=== PATIENT | female | born 1985 | race African-American/Black ===

== ENCOUNTER 2017-06-26 15:05 | Emergency (ER) | payer MEDICAID ==
[~2017-06-26] VITALS: Ht 165.1 cm; Wt 63.5 kg
[~2017-06-26 15:05] MED LIST: Docusate Sod/Senna PO; IBUP600 PO; PREN0.01 PO
[2017-06-26] MEDS ORDERED: LACTATED RINGER'S 1000 ML INJ 1,000 ML IV SCH (16:33)
[2017-06-26 17:30] LABS: BLOOD, URINE NEG (NEG); COMMENT (UR) CULT NOT INDICATED; CULTURE IF INDICATED CULT NOT INDICATED; GLUCOSE,URINE NEG (NEG); KETONE, URINE 40 mg/dL (NEG); NITRITE,URINE NEG (NEG); PH, URINE 7.5 (5.0-8.5); SQUAMOUS EPITHELIAL CELL URINE 2 /hpf (0-5); URINE COLOR YELLOW (YELLW/STRAW)
--- NOTE | 2017-06-26 18:41 | PD ---
HPI Chief Complaint contractions Date Seen: Jun 26, 2017 Travel History International Travel<30 Days: No Contact w/Intl Traveler<30Days: No Known Affected Area: No History of Present Illness HPI 31 yo @ 33w6d with BRISEYDA 08-08-2017. care with Dr. Tolbert at [facility]. Reports high risk and is seen weekly. Patient presents with c/o contractions. She describes intermittent cramping. No VB, LOF. +FM. She reports having "low blood sugar". Poor fluid intake today History Obstetric History Obstetric History 2010 , severe pre-eclampsia with oligo @ 31 weeks 2011 ?ectopic 2013 of IUFD @ 32 weeks 2015 of IUFD @ 32 weeks Past Surgical History Narrative Surgical Family History Family History: Negative Social History Alcohol Use: No Tobacco Use: Yes Substance Abuse: No Allergies-Medications (Allergen,Severity, Reaction): Coded Allergies: No Known Allergies (Verified , 06/26/17) Home Meds Active Scripts Ibuprofen (Motrin 600 Mg Tab) 600 Mg Tab, 600 MG PO Q6H Y for CRAMPING, #30 TAB Prov:Ann Montano MD 06/06/14 [Docusate Sod/Senna] 1 TAB TAB No Conflict Check, 2 TAB PO Q12H Y for CONSTIPATION, #30 TAB Prov:Ann Montano MD 06/06/14 Multivit/Min/Fol Ac/Iron/Pren ( Vit ( Plus)) Tab, 1 TAB PO DAILY, #30 TAB 6 Refills Prov:John Mcbride MD 02/18/14 Review of Systems ROS Limitations: Poor Historian General / Constitutional: No: Fever, Chills Eyes: No: Blurred Vision, Visual changes HENT: No: Headaches, Lightheadedness Cardiovascular: No: Chest Pain or Discomfort, Palpitations Respiratory: No: Cough, Short of Breath Gastrointestinal: Abdominal Pain (contractions per), No: Nausea, Vomiting, Diarrhea, Loss of Appetite Genitourinary: No: Urgency, Frequency, Dysuria, Discharge, Vaginal Bleeding Musculoskeletal: No: Limited ROM, Weakness Skin: No Rash, No Itching, No Lesions Neurologic: No: Focal Abnormalities, Coordination Problem Psychiatric: Anxiety Physical Exam Narrative GENERAL: Well-nourished, well-developed patient. NAD SKIN: Warm and dry. HEAD: Normocephalic and atraumatic. EYES: No scleral icterus. No injection or drainage. ENT: No nasal drainage noted. Mucous membranes pink. Airway patent. NECK: trachea midline. No JVD. CARDIOVASCULAR: Regular rate VSS RESPIRATORY: No accessory muscle use. ABDOMEN/GI: Abdomen soft, non-tender, no rebound, no guarding Gravid GENITOURINARY: External Genitalia: intact and normal in appearance BUS glands: [-] SVE: closed/thick/high TOCO: occasional UC with irritability, resolved FHT's: Category: I Baseline: 120 Reactive: +acc to 150 Variability: mod Decels: [-] EXTREMITIES: No cyanosis or edema. BACK: Nontender without obvious deformity. Normal ROM NEUROLOGICAL: Awake and alert. Motor and sensory grossly within normal limits. Normal speech. Data Data Vital Signs Reviewed: Yes Orders Orders Vital Signs (Adult) .ON ADMISSION (06/26/17 16:33) ^ Labor Status (06/26/17 16:33) Urinalysis - C+S If Indicated (06/26/17 16:33) ^ Non Stress Test (06/26/17 16:33) ^ Hydration (06/26/17 16:33) Lactated Ringer's 1000 Ml Inj (Lr 1000 M (06/26/17 16:33) Ob/Psych Drug Screen, Urine (06/26/17 18:13) Labs Bedside Glucose 90 Laboratory Tests Test 06/26/17 17:00 Urine Color YELLOW Urine Turbidity HAZY Urine pH 7.5 Urine Specific [place] 1.010 Urine Protein NEG Urine Glucose (UA) NEG Urine Ketones 40 Urine Occult Blood NEG Urine Nitrite NEG Urine Bilirubin NEG Urine Urobilinogen 2.0 Urine Leukocyte Esterase SMALL Urine RBC LESS THAN 1 Urine WBC 2 Urine Squamous Epithelial Cells 2 Urine Amorphous Sediment RARE Microscopic Urinalysis Comment CULT NOT INDICATED MDM Medical Record Reviewed: Yes Narrative Course / MDM 33w6d Irregular UC resolved Dehydration with Ketones on UA IV hydrated Tolerating regular diet and fluid FHT reassuring No PTL, cervix closed. Normal glucose Plan D/c home F/u for OB visits weekly with NSTs Mariya Cha MD Jun 26, 2017 18:41
[2017-07-01 09:40] LABS: BATH SALTS (MDPV) UR NEG (NEG); ECSTASY (MDMA) UR NEG (NEG); GABAPENTIN UR NEG (NEG); HEROIN (6-ACETYLMORPHINE) UR NEG (NEG); HYDROMORPHONE U NEG (NEG); K2 SPICE UR NEG (NEG); OBMETHADONE UR NEG (NEG); PHENCYCLIDINE URINE NEG (NEG)
== END 2017-06-26 18:56 | disposition home or self-care (01) ==
LOC: HOBED 15:05
DX: O47.03 False labor before 37 completed weeks of gestation, third trimester (principal); E86.0 Dehydration; O99.333 Smoking (tobacco) complicating pregnancy, third trimester; Z3A.33 33 weeks gestation of pregnancy; Z79.899 Other long term (current) drug therapy
CPT/HCPCS: 59025; 80307; 81001; 82948; G0481

== ENCOUNTER 2017-07-25 14:33 | Inpatient (IN) | payer MEDICAID ==
[~2017-07-25] VITALS: Ht 165.1 cm; Wt 64.0 kg
[2017-07-25] VITALS (18 sets, daily range): BP systolic 104–141; BP diastolic 57–124; PULSE 54–114; RESP 16–20; TEMP 97.5–97.7; O2SAT 100
[2017-07-25] MEDS ORDERED: LACTATED RINGER'S 1000 ML INJ 1,000 ML IV ONE (14:51)
--- NOTE | 2017-07-25 15:09 | HHI.PR ---
PORTER HEAD Note Note Patient Name: Uzma Ward Unit Number: [id number] Date of : 1985 Patient Status: Admitted Inpatient Attending Doctor: Kedar Eli MD HPI HPI Chief Complaint ROM Date Seen: Jul 25, 2017 Time Seen: 14:57 Travel History International Travel<30 Days: No Contact w/Intl Traveler<30Days: No Known Affected Area: No History of Present Illness HPI 31y/o @ 38.wks. She has PNC with a [facility] provider. She presented today via EMS for ROM. She reports that it occured at 13:30pm today and ctx started shortly thereafter. She has a poor obstetrical history: 1. STAT c/s at term for preE 2. ectopic, LSC 3. 32wk of IUFD 4. rCS at term 5. current, scheduled for rCS next week Pt states that she has been taking ASA 81mg (still on) and PNVs. She smokes 1/ 2 PPD. Weeks Gestation: 38 Para: 3 : 5 Last Menstrual Period: Jul 25, 2017 History (Limited) History Obstetric History Obstetric History 1. STAT c/s at term for preE 2. ectopic, LSC 3. 32wk of IUFD 4. rCS at term 5. current, scheduled for rCS next week Past Surgical History Narrative Surgical CS x2 LSC ectopic x1 Family History Family History: Social History Alcohol Use: No Tobacco Use: Yes (1/2 PPD) Substance Abuse: No Allergies-Medications Allergies-Medications (Allergen,Severity, Reaction): Coded Allergies: No Known Allergies (Verified , 06/26/17) Home Meds Active Scripts Ibuprofen (Motrin 600 Mg Tab) 600 Mg Tab, 600 MG PO Q6H Y for CRAMPING, #30 TAB Prov:Ann Montano MD 06/06/14 [Docusate Sod/Senna] 1 TAB TAB No Conflict Check, 2 TAB PO Q12H Y for CONSTIPATION, #30 TAB Prov:Ann Montano MD 06/06/14 Multivit/Min/Fol Ac/Iron/Pren ( Vit ( Plus)) Tab, 1 TAB PO DAILY, #30 TAB 6 Refills Prov:John Mcbride MD 02/18/14 ROS Review of Systems Except as stated in HPI: all other systems reviewed are Neg Physical Exam Physical Exam Narrative GENERAL: uncooperative, flailing in bed SKIN: Warm and dry. HEAD: Normocephalic and atraumatic. EYES: No scleral icterus. No injection or drainage. ABDOMEN/GI: Abdomen soft, non-tender, gravid EXTREMITIES: No cyanosis or edema. NEUROLOGICAL: appears chemically impaired CVX: 3/90/-2, grossly ruptured TOCO: no ctx seen on tracing but pt moving and toco irritable FHT's: 130s, +accels, no decels, moderate variability, reactive Data Data Data Vital Signs Reviewed: Yes Orders Orders Ob (2e) Additional Admit Info (07/25/17 14:42) Vital Signs (Adult) .ON ADMISSION (07/25/17 14:51) ^ Labor Status (07/25/17 14:51) ^ Non Stress Test (07/25/17 14:51) Admit To Inpatient (07/25/17 ) Vital Signs (Adult) .ON ADMISSION (07/25/17 14:51) Activity Oob Ad Marilyn (07/25/17 14:51) Heart (07/25/17 14:51) Urinary Catheter Management BRIAN.Q8H (07/25/17 14:51) ^ Preps (07/25/17 14:51) Scd / Epifanio / Foot Pump BRIAN.QSHIFT (07/25/17 14:51) ^ Ultrasound For Locatio (07/25/17 14:51) Diet Npo (07/25/17 Dinner) Lactated Ringer's 1000 Ml Inj (Lr 1000 M (07/25/17 14:51) Lactated Ringer's 1000 Ml Inj (Lr 1000 M (07/25/17 15:21) Citric Acid-Sodium Citrate Liq (Bicitra (07/25/17 16:30) Type And Screen (07/25/17 14:51) Complete Blood Count With Diff (07/25/17 14:51) Urinalysis - C+S If Indicated (07/25/17 14:51) Drug Screen, Random Urine (07/25/17 14:51) Cefazolin Inj (Ancef Inj) (07/25/17 16:00) Inpatient Certification (07/25/17 ) MDM MDM Plan 31y/o @ 38.0wks with 1. PROM -- grossly ruptured on exam 2. h/o CSx2 -- for rCS scheduled next week at [facility] -- unable to communicate NPO time -- preop orders placed 3. h/o preE -- on ASA 81mg this preg, continues currently, will notify ANES -- BPs normal range 4. h/o IUFD at 32wks 5. records -- requested stat from [facility] Diagnosis Diagnosis: Primary Impression: 38 weeks gestation of Additional Impressions: PROM (premature rupture of membranes) History of History of ectopic Kedar Eli MD Jul 25, 2017 14:56 Kedar Eli MD Jul 25, 2017 15:09
--- NOTE | 2017-07-25 15:09 | HHI.PR ---
PRODUCTION DISPATCHER Note Note Patient Name: Uzma Ward Unit Number: [id number] Date of : 1985 Patient Status: Admitted Inpatient Attending Doctor: Kedar Eli MD HPI HPI Chief Complaint ROM Date Seen: Jul 25, 2017 Time Seen: 14:57 Travel History International Travel<30 Days: No Contact w/Intl Traveler<30Days: No Known Affected Area: No History of Present Illness HPI 31y/o @ 38.wks. She has PNC with a [facility] provider. She presented today via EMS for ROM. She reports that it occured at 13:30pm today and ctx started shortly thereafter. She has a poor obstetrical history: 1. STAT c/s at term for preE 2. ectopic, LSC 3. 32wk of IUFD 4. rCS at term 5. current, scheduled for rCS next week Pt states that she has been taking ASA 81mg (still on) and PNVs. She smokes 1/ 2 PPD. Weeks Gestation: 38 Para: 3 : 5 Last Menstrual Period: Jul 25, 2017 History (Limited) History Obstetric History Obstetric History 1. STAT c/s at term for preE 2. ectopic, LSC 3. 32wk of IUFD 4. rCS at term 5. current, scheduled for rCS next week Past Surgical History Narrative Surgical CS x2 LSC ectopic x1 Family History Family History: Social History Alcohol Use: No Tobacco Use: Yes (1/2 PPD) Substance Abuse: No Allergies-Medications Allergies-Medications (Allergen,Severity, Reaction): Coded Allergies: No Known Allergies (Verified , 06/26/17) Home Meds Active Scripts Ibuprofen (Motrin 600 Mg Tab) 600 Mg Tab, 600 MG PO Q6H Y for CRAMPING, #30 TAB Prov:Ann Montano MD 06/06/14 [Docusate Sod/Senna] 1 TAB TAB No Conflict Check, 2 TAB PO Q12H Y for CONSTIPATION, #30 TAB Prov:Ann Montano MD 06/06/14 Multivit/Min/Fol Ac/Iron/Pren ( Vit ( Plus)) Tab, 1 TAB PO DAILY, #30 TAB 6 Refills Prov:John Mcbride MD 02/18/14 ROS Review of Systems Except as stated in HPI: all other systems reviewed are Neg Physical Exam Physical Exam Narrative GENERAL: uncooperative, flailing in bed SKIN: Warm and dry. HEAD: Normocephalic and atraumatic. EYES: No scleral icterus. No injection or drainage. ABDOMEN/GI: Abdomen soft, non-tender, gravid EXTREMITIES: No cyanosis or edema. NEUROLOGICAL: appears chemically impaired CVX: 3/90/-2, grossly ruptured TOCO: no ctx seen on tracing but pt moving and toco irritable FHT's: 130s, +accels, no decels, moderate variability, reactive Data Data Data Vital Signs Reviewed: Yes Orders Orders Ob (2e) Additional Admit Info (07/25/17 14:42) Vital Signs (Adult) .ON ADMISSION (07/25/17 14:51) ^ Labor Status (07/25/17 14:51) ^ Non Stress Test (07/25/17 14:51) Admit To Inpatient (07/25/17 ) Vital Signs (Adult) .ON ADMISSION (07/25/17 14:51) Activity Oob Ad Marilyn (07/25/17 14:51) Heart (07/25/17 14:51) Urinary Catheter Management BRIAN.Q8H (07/25/17 14:51) ^ Preps (07/25/17 14:51) Scd / Epifanio / Foot Pump BRIAN.QSHIFT (07/25/17 14:51) ^ Ultrasound For Locatio (07/25/17 14:51) Diet Npo (07/25/17 Dinner) Lactated Ringer's 1000 Ml Inj (Lr 1000 M (07/25/17 14:51) Lactated Ringer's 1000 Ml Inj (Lr 1000 M (07/25/17 15:21) Citric Acid-Sodium Citrate Liq (Bicitra (07/25/17 16:30) Type And Screen (07/25/17 14:51) Complete Blood Count With Diff (07/25/17 14:51) Urinalysis - C+S If Indicated (07/25/17 14:51) Drug Screen, Random Urine (07/25/17 14:51) Cefazolin Inj (Ancef Inj) (07/25/17 16:00) Inpatient Certification (07/25/17 ) MDM MDM Plan 31y/o @ 38.0wks with 1. PROM -- grossly ruptured on exam 2. h/o CSx2 -- for rCS scheduled next week at [facility] -- unable to communicate NPO time -- preop orders placed 3. h/o preE -- on ASA 81mg this preg, continues currently, will notify ANES -- BPs normal range 4. h/o IUFD at 32wks 5. records -- requested stat from [facility] Diagnosis Diagnosis: Primary Impression: 38 weeks gestation of Additional Impressions: PROM (premature rupture of membranes) History of History of ectopic Kedar Eli MD Jul 25, 2017 14:56 Kedar Eli MD Jul 25, 2017 15:09
--- NOTE | 2017-07-25 15:09 | HHI.PR ---
CYANIDE CASE HARDENER Note Note Patient Name: Uzma Ward Unit Number: [id number] Date of : 1985 Patient Status: Admitted Inpatient Attending Doctor: Kedar Eli MD HPI HPI Chief Complaint ROM Date Seen: Jul 25, 2017 Time Seen: 14:57 Travel History International Travel<30 Days: No Contact w/Intl Traveler<30Days: No Known Affected Area: No History of Present Illness HPI 31y/o @ 38.wks. She has PNC with a [facility] provider. She presented today via EMS for ROM. She reports that it occured at 13:30pm today and ctx started shortly thereafter. She has a poor obstetrical history: 1. STAT c/s at term for preE 2. ectopic, LSC 3. 32wk of IUFD 4. rCS at term 5. current, scheduled for rCS next week Pt states that she has been taking ASA 81mg (still on) and PNVs. She smokes 1/ 2 PPD. Weeks Gestation: 38 Para: 3 : 5 Last Menstrual Period: Jul 25, 2017 History (Limited) History Obstetric History Obstetric History 1. STAT c/s at term for preE 2. ectopic, LSC 3. 32wk of IUFD 4. rCS at term 5. current, scheduled for rCS next week Past Surgical History Narrative Surgical CS x2 LSC ectopic x1 Family History Family History: Social History Alcohol Use: No Tobacco Use: Yes (1/2 PPD) Substance Abuse: No Allergies-Medications Allergies-Medications (Allergen,Severity, Reaction): Coded Allergies: No Known Allergies (Verified , 06/26/17) Home Meds Active Scripts Ibuprofen (Motrin 600 Mg Tab) 600 Mg Tab, 600 MG PO Q6H Y for CRAMPING, #30 TAB Prov:Ann Montano MD 06/06/14 [Docusate Sod/Senna] 1 TAB TAB No Conflict Check, 2 TAB PO Q12H Y for CONSTIPATION, #30 TAB Prov:Ann Montano MD 06/06/14 Multivit/Min/Fol Ac/Iron/Pren ( Vit ( Plus)) Tab, 1 TAB PO DAILY, #30 TAB 6 Refills Prov:John Mcbride MD 02/18/14 ROS Review of Systems Except as stated in HPI: all other systems reviewed are Neg Physical Exam Physical Exam Narrative GENERAL: uncooperative, flailing in bed SKIN: Warm and dry. HEAD: Normocephalic and atraumatic. EYES: No scleral icterus. No injection or drainage. ABDOMEN/GI: Abdomen soft, non-tender, gravid EXTREMITIES: No cyanosis or edema. NEUROLOGICAL: appears chemically impaired CVX: 3/90/-2, grossly ruptured TOCO: no ctx seen on tracing but pt moving and toco irritable FHT's: 130s, +accels, no decels, moderate variability, reactive Data Data Data Vital Signs Reviewed: Yes Orders Orders Ob (2e) Additional Admit Info (07/25/17 14:42) Vital Signs (Adult) .ON ADMISSION (07/25/17 14:51) ^ Labor Status (07/25/17 14:51) ^ Non Stress Test (07/25/17 14:51) Admit To Inpatient (07/25/17 ) Vital Signs (Adult) .ON ADMISSION (07/25/17 14:51) Activity Oob Ad Marilyn (07/25/17 14:51) Heart (07/25/17 14:51) Urinary Catheter Management BRIAN.Q8H (07/25/17 14:51) ^ Preps (07/25/17 14:51) Scd / Epifanio / Foot Pump BRIAN.QSHIFT (07/25/17 14:51) ^ Ultrasound For Locatio (07/25/17 14:51) Diet Npo (07/25/17 Dinner) Lactated Ringer's 1000 Ml Inj (Lr 1000 M (07/25/17 14:51) Lactated Ringer's 1000 Ml Inj (Lr 1000 M (07/25/17 15:21) Citric Acid-Sodium Citrate Liq (Bicitra (07/25/17 16:30) Type And Screen (07/25/17 14:51) Complete Blood Count With Diff (07/25/17 14:51) Urinalysis - C+S If Indicated (07/25/17 14:51) Drug Screen, Random Urine (07/25/17 14:51) Cefazolin Inj (Ancef Inj) (07/25/17 16:00) Inpatient Certification (07/25/17 ) MDM MDM Plan 31y/o @ 38.0wks with 1. PROM -- grossly ruptured on exam 2. h/o CSx2 -- for rCS scheduled next week at [facility] -- unable to communicate NPO time -- preop orders placed 3. h/o preE -- on ASA 81mg this preg, continues currently, will notify ANES -- BPs normal range 4. h/o IUFD at 32wks 5. records -- requested stat from [facility] Diagnosis Diagnosis: Primary Impression: 38 weeks gestation of Additional Impressions: PROM (premature rupture of membranes) History of History of ectopic Kedar Eli MD Jul 25, 2017 14:56 Kedar Eli MD Jul 25, 2017 15:09
[2017-07-25] MEDS ORDERED: LACTATED RINGER'S 1000 ML INJ 1,000 ML IV SCH ×2 (15:21→21:42)
[2017-07-25 15:32] LABS: AUTOMATED NEUTROPHIL # 6.8 TH/MM3 (1.8-7.7); BASOPHIL # 0.1 TH/MM3 (0-0.2); BASOPHIL % 0.5 % (0.0-2.0); EOSINOPHIL # 0.4 TH/MM3 (0-0.4); EOSINOPHIL % 3.2 % (0.0-4.0); HEMATOCRIT 34.9 % (35.0-46.0); HEMOGLOBIN 11.7 GM/DL (11.6-15.3); LYMPH % 27.9 % (9.0-44.0); LYMPHOCYTE # 3.3 TH/MM3 (1.0-4.8); MEAN CELL VOLUME 83.5 FL (80.0-100.0); MEAN CORPUSCULAR HGB CONC 33.5 % (32.0-36.0); MEAN PLATELET VOLUME 8.1 FL (7.0-11.0); MONO % 10.2 % (0.0-8.0); MONOCYTE # 1.2 TH/MM3 (0-0.9); NEUT % 58.2 % (16.0-70.0); PLATELET COUNT 262 TH/MM3 (150-450); RED BLOOD COUNT 4.18 MIL/MM3 (4.00-5.30); RED CELL DISTRIBUTION WIDTH 13.8 % (11.6-17.2); WHITE BLOOD COUNT 11.7 TH/MM3 (4.0-11.0)
[2017-07-25 15:35] LABS: BILIRUBIN, URINE NEG (NEG); BLOOD, URINE NEG (NEG); GLUCOSE,URINE NEG (NEG); KETONE, URINE NEG (NEG); MUCUS URINE FEW /lpf (OCC); NITRITE,URINE NEG (NEG); PH, URINE 7.5 (5.0-8.5); URINE COLOR YELLOW (YELLW/STRAW); URINE LEUKOCYTE ESTERASE NEG (NEG)
[2017-07-25] MEDS ORDERED: ACETAMINOPHEN 1000 MG/100 ML 100 ML IV ONE (15:43)
[2017-07-25] MEDS ORDERED: CITRIC ACID-SODIUM CITRATE LIQ 30 ML UDC PO SCH (16:30)
[2017-07-25] MEDS ORDERED: KETOROLAC TROMETHAMINE 60 MG/2 ML (IM) VIAL IM PRN (16:45)
[2017-07-25] MEDS ORDERED: ZOLPIDEM TARTRATE 5 MG TAB PO PRN (16:45)
[2017-07-25] MEDS ORDERED: OXYTOCIN 30 UNITS-500ML PREMIX 500 ML IV ONE (16:45)
[2017-07-25] MEDS ORDERED: SODIUM CHLORIDE 0.9% FLUSH 10 ML FLUSH IV FLUSH PRN (16:45)
[2017-07-25] MEDS ORDERED: oxyCODONE/ACETAMINOPHEN 5 MG/325 MG TAB PO PRN (16:45)
[2017-07-25] MEDS ORDERED: ACETAMINOPHEN 325 MG TAB PO PRN (16:45)
[2017-07-25] MEDS ORDERED: ONDANSETRON HCL 4 MG/2 ML VIAL IV PUSH PRN (16:45)
--- NOTE | 2017-07-25 17:13 | PD.OB.DELI ---
Procedure Note Section Procedure Pre Op Diagnosis: (1) Request for sterilization (2) 38 weeks gestation of (3) PROM (premature rupture of membranes) (4) Previous section Post Op Diagnosis: (1) 38 weeks gestation of (2) PROM (premature rupture of membranes) (3) Previous section (4) Request for sterilization Performed by Kedar Eli Procedure: Repeat Low Transverse Sec Indication for delivery: Other (PROM, h/o CSx2) Previous condition: None Informed consent obtained: For procedure Confirmed correct: Patient, Procedure, Site, Time-out taken Anesthesia: Spinal Medication prior to procedure: As documented in eMAR Monitoring during procedure: Blood pressure monitoring, Pulse oximetry Urinary catheter: Inserted using sterile technique Sterile preparation: In usual fashion Position: Supine with wedge to left side Operative Features Skin Incision: Pfannenstiel Uterine Incision: Low transverse w/knife / blunt ext Membranes Ruptured: Previously Presentation: Occiput posterior, Face presentation, Vertex Delivery date: Jul 25, 2017 Delivery time: 15:57 Delivery of : Uneventful : Male One Minute : 8 Five Minute : 9 Weight: 2680 Status of : Viable, Cord blood Placenta delivered: Intact Estimated blood loss: 500 Procedure tolerated: Well Maternal Condition: Stable Procedure in detail The pt was taken to the OR where she spinal anesthesia was placed. She was then prepped and draped in the normal sterile fashion. A time out was taken and agreed by all team members. A scalpel was used to excise the prior scar with Bovie assistance. The incision was then carried down to the underlying layer of fascia which was nicked in the midline. The fascia was extended laterally with Newell scissors. Reinaldo clamps were used to elevate the fascia and the underlying rectus muscles were dissected off with blunt and sharp dissection. The same was done to the inferior fascia. The muscles were in the midline and the peritoneum entered bluntly. It was stretched with adequate visualization of the bladder. A bladder blade was placed and a bladder flap created. A low uterine incision was then made with the scalpel and extended bluntly. A hand was placed into the lower uterine segment and the head delivered atraumatically followed by the body. Delayed cord clamping x45sec took place while the baby was suctioned, dried, and stimulated. Cord was double clamped and handed off to awaiting team. Cord blood was collected and sent to the lab. The placenta expelled with fundal massage. The uterus was exteriorized and cleared of all clot and debris. The hysterotomy was closed with 0-vicryl in a running locked fashion. A second layer of 0-monocryl was used to embricate and achieve excellent hemostasis. Attention was then turned to the R fallopian tube. It was grasped with a [place] clamp and using 2 plain gut ties, a modified Hudson was performed and the tubal segment excised and sent to pathology. These steps were repeated on the L fallopian tube. The cul-de-sac was irrigated and the uterus replaced into the abdomen. The gutters were inspected and cleared of all clot and debris. The hysterotomy was hemostatic. All instruments were removed from the abdomen and the peritoneum was closed with 3-0 vicryl. The rectus fascia was inspected and hemostatic. The muscles were reapproximated with a horizontal mattress stitch using 0- vicryl. The fascia was closed with 0-vicryl in a running fashion from L to R. The subcutaneous tissue was irrigated and the Bovie used to achieve excellent hemostasis. The tissue was reapproximated with 3-0 plain gut. The skin was clsoed with 4-0 monocryl in a running subcuticular fashion. The incision was dressed and a closing time out performed. The pt tolerated the procedure well and was taken to the PACU in stable condition. Sponge, laps, instruments, and needle counts were correct x3. Kedar Eli MD Jul 25, 2017 17:13
[2017-07-25] MEDS ORDERED: OXYTOCIN 30 UNITS-500ML PREMIX 500 ML ONE (17:36)
[2017-07-25] MEDS ORDERED: ASPI81CH37 CHEW (17:50)
[2017-07-25] MEDS ORDERED: EPIDURAL-NO SYSTEMIC NARCOTICS PRN (18:15)
[2017-07-25] MEDS ORDERED: EPIDURAL-DIPHENHYDRAMINE HCL 50 MG/ML VIAL IV PUSH PRN (18:15)
[2017-07-25] MEDS ORDERED: EPIDURAL-DO NOT ADMINISTER ANTICOAGULANTS PRN (18:15)
[2017-07-25] MEDS ORDERED: EPIDURAL-NALOXONE HCL 0.4 MG/ML AMP IV PUSH PRN (18:15)
[2017-07-25] MEDS ORDERED: EPIDURAL-DIPHENHYDRAMINE HCL 50 MG CAP PO PRN (18:15)
[2017-07-25] MEDS ORDERED: SODIUM CHLORIDE 0.9% FLUSH 10 ML FLUSH IV FLUSH SCH (21:00)
[2017-07-26] VITALS (7 sets, daily range): BP systolic 88–138; BP diastolic 44–93; PULSE 59–88; RESP 16–18; TEMP 97.9–98.7; O2SAT 100
[2017-07-26] MEDS: ACETAMINOPHEN 1000 MG/100 ML 100 ML IV SCH ×3 (00:09→08:43)
[2017-07-26] MEDS ORDERED: OXYTOCIN 30 UNITS-500ML PREMIX 500 ML IV PRN (02:45)
[2017-07-26 06:03] LABS: AUTOMATED NEUTROPHIL # 13.8 TH/MM3 (1.8-7.7); BASOPHIL # 0.1 TH/MM3 (0-0.2); BASOPHIL % 0.3 % (0.0-2.0); EOSINOPHIL # 0.2 TH/MM3 (0-0.4); EOSINOPHIL % 1.3 % (0.0-4.0); HEMATOCRIT 32.8 % (35.0-46.0); LYMPH % 15.8 % (9.0-44.0); LYMPHOCYTE # 2.9 TH/MM3 (1.0-4.8); MEAN CELL VOLUME 84.7 FL (80.0-100.0); MEAN CORPUSCULAR HEMOGLOBIN 28.5 PG (27.0-34.0); MEAN CORPUSCULAR HGB CONC 33.6 % (32.0-36.0); MEAN PLATELET VOLUME 7.8 FL (7.0-11.0); MONO % 7.4 % (0.0-8.0); MONOCYTE # 1.4 TH/MM3 (0-0.9); NEUT % 75.2 % (16.0-70.0); PLATELET COUNT 227 TH/MM3 (150-450); RED BLOOD COUNT 3.87 MIL/MM3 (4.00-5.30); RED CELL DISTRIBUTION WIDTH 13.7 % (11.6-17.2); WHITE BLOOD COUNT 18.3 TH/MM3 (4.0-11.0)
--- NOTE | 2017-07-26 08:55 | HHI.OB ---
Subjective Remarks 31 year old female s/p C/S at 38 wks gestation, POD 1. AFVSS. Patient reports she is feeling well. Bleeding is decreasing and pain is well- controlled. Baby is formula fed, not in room currently due to mother recovering from C/S and having some agitation overnight. Ambulating without difficulties. She is tolerating a diet without nausea or vomiting. She has not had a bowel movement. She has passed gas. Denies chest pain, dysuria, shortness of breath, or calf pain. Objective Vitals/I&O Vital Signs Date Time Temp Pulse Resp B/P (MAP) Pulse Ox O2 Delivery O2 Flow Rate FiO2 07/26/17 06:13 18 07/26/17 04:14 59 16 88/44 (59) 100 07/26/17 04:14 98.0 07/26/17 03:00 18 07/26/17 00:15 98.7 65 18 111/55 (73) 100 07/25/17 23:00 20 07/25/17 22:10 18 07/25/17 19:20 97.5 100 07/25/17 19:20 63 20 116/74 (88) 07/25/17 18:30 97.6 54 16 124/70 (88) 07/25/17 17:31 73 19 100 07/25/17 17:30 123/68 (86) 07/25/17 17:21 72 18 104/73 (83) 100 07/25/17 17:00 61 106/57 (73) 07/25/17 17:00 18 100 07/25/17 16:47 73 07/25/17 16:47 97.7 16 100 07/25/17 16:46 112/65 (81) 07/25/17 15:25 106 07/25/17 15:22 141/124 (130) 07/25/17 15:20 114 07/25/17 15:15 110 07/25/17 15:05 96 07/25/17 15:00 96 07/25/17 14:55 98 07/25/17 14:53 97.6 94 119/74 (89) Result Diagram: 07/26/17 0539 Objective Remarks GENERAL: Well-nourished, well-developed patient. CARDIOVASCULAR: Regular rate and rhythm without murmurs, gallops, or rubs. RESPIRATORY: Breath sounds equal bilaterally. No accessory muscle use. ABDOMEN/GI: Abdomen soft, non-tender, bowel sounds present. Incision: Covered in pressure bandage, will check POD 2. Fundus: Firm, mildly tender at umbilicus. GENITOURINARY: Light to moderate bleeding. EXTREMITIES: No cyanosis or edema, non-tender, without signs of DVT. Medications and IVs Current Medications Medications (Trade) Dose Ordered Sig/Sol Route Start Time Stop Time Status Last Admin Lactated Ringer's 1,000 ml @ 150 mls/hr Q6H40M IV 07/25/17 15:21 07/25/17 23:00 (Bicitra Liq) 30 ml TAX REVENUE OFFICER PO 07/25/17 16:30 07/29/17 16:29 07/25/17 15:25 Cefazolin Sodium 1000 mg/Sodium Chloride 100 ml @ 200 mls/hr TAX REVENUE OFFICER IV 07/25/17 16:00 07/29/17 15:59 Lactated Ringer's 1,000 ml @ 100 mls/hr Q10H IV 07/25/17 21:42 07/26/17 17:41 Oxytocin 500 ml @ 100 mls/hr UNSCH X1 PRN IV 07/26/17 02:45 07/27/17 02:44 (NS Flush) 2 ml BID IV FLUSH 07/25/17 21:00 (NS Flush) 2 ml UNSCH PRN IV FLUSH 07/25/17 16:45 (Mylicon Chew) 80 mg QID PRN PO 07/25/17 16:45 (Tylenol) 650 mg Q6H PRN PO 07/25/17 16:45 (Toradol Inj) 30 mg Q6H PRN IM 07/25/17 16:45 07/26/17 16:44 (Percocet 5-325 Mg) 1 tab Q4H PRN PO 07/25/17 16:45 (Percocet 5-325 Mg) 2 tab Q4H PRN PO 07/25/17 16:45 (Asha-Colace) 2 tab Q12H PRN PO 07/25/17 16:45 (Ambien) 5 mg HS PRN PO 07/25/17 16:45 07/26/17 00:09 (M-M-R Ii Inj) 0.5 ml ONCE ONCE SQ 07/26/17 16:00 07/26/17 16:01 (Boostrix Inj) 0.5 ml ONCE ONCE IM 07/26/17 16:00 07/26/17 16:01 (Zofran Inj) 4 mg Q6H PRN IV PUSH 07/25/17 16:45 Miscellaneous Information NO SYSTEMIC NARCOTICS TO BE GIVEN FO... UNSCH PRN .XX 07/25/17 18:15 07/26/17 18:14 (Narcan Inj) 0.4 mg UNSCH PRN IV PUSH 07/25/17 18:15 07/26/17 18:14 (Benadryl Inj) 25 mg Q6H PRN IV PUSH 07/25/17 18:15 07/26/17 18:14 (Benadryl) 50 mg Q6H PRN PO 07/25/17 18:15 07/26/17 18:14 07/26/17 00:15 Miscellaneous Information ALL NURSING DEPARTMENTS UNSCH PRN .XX 07/25/17 18:15 07/26/17 18:14 Assessment/Plan Assessment and Plan 31 yo female s/p C/S, POD 1 - AFVSS - h/o depression, ADHD, PTSD, currently unmedicated, not established with psych. Exam today with slightly slowed though process and excessive movement which patient attributes to ADHD - Offered patient psychiatry consult to further discuss and establish, patient was interested, consult placed - Continue routine care - Motrin and Percocet PRN pain - Encourage OOB - Pelvic rest x 6 wks. Will need 1 week incision check. - Contraception: Undecided - Anticipate D/C 07/27 or 07/28 Sadi Russo MD R2 Jul 26, 2017 08:55
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
[2017-07-26] MEDS: DOCUSATE SODIUM 50 MG/SENNA 8.6 MG TAB PO PRN (15:05)
[2017-07-26] MEDS: SIMETHICONE 80 MG CHEWABLE TAB PO PRN (15:05)
[2017-07-26] MEDS: oxyCODONE/ACETAMINOPHEN 5 MG/325 MG TAB PO PRN ×2 (15:06→19:23)
[2017-07-26] MEDS ORDERED: MEASLES, MUMPS, RUBELLA VACCINE 0.5 ML VIAL SQ ONE (16:00)
[2017-07-26] MEDS ORDERED: DIPHTH/TETANUS/ACEL PERTUSSIS (BOOSTER) 0.5 ML VIAL/PFS IM ONE (16:00)
[2017-07-26] MEDS: IBUPROFEN 600 MG TAB PO PRN (19:22)
[2017-07-27] MEDS: oxyCODONE/ACETAMINOPHEN 5 MG/325 MG TAB PO PRN ×4 (00:42→15:22)
[2017-07-27] MEDS: IBUPROFEN 600 MG TAB PO PRN ×2 (05:17→15:22)
[2017-07-27] MEDS: DOCUSATE SODIUM 50 MG/SENNA 8.6 MG TAB PO PRN (05:23)
[2017-07-27] MEDS: SIMETHICONE 80 MG CHEWABLE TAB PO PRN (05:23)
[2017-07-27 07:50] VITALS: BP 133/80; PULSE 76; RESP 18; TEMP 98.1
[2017-07-27] MEDS ORDERED: OXYC1TAB63 PO (09:13)
[2017-07-27] MEDS ORDERED: IBUP-232 PO (09:13)
--- NOTE | 2017-07-27 09:15 | HHI.DCPOC ---
Discharge Care Plan Diagnosis: (1) delivery delivered (2) PROM (premature rupture of membranes) Report Symptoms to Your Doctor -Temperature above 100.5 degrees -Redness, of incision or excessive or foul smelling drainage -Unusual pain or calf pain -Increased vaginal bleeding -Painful or difficulty urinating -Feelings of extreme sadness or anxiety after 2 weeks Goals to Promote Your Health * To prevent worsening of your condition and complications * To maintain your health at the optimal level Directions to Meet Your Goals Take your medications as prescribed Follow your dietary instruction Follow activity as directed Ensure plenty of rest for recovery Drink fluids for hydration Keep your appointments as scheduled Take your immunizations and boosters as scheduled If your symptoms worsen call your PCP, if no PCP go to Urgent Care Center or Emergency Room Smoking is Dangerous to Your Health. Avoid second hand smoke Call the 24-hour crisis hotline for domestic abuse at Sadi Russo MD R2 Jul 27, 2017 09:15
--- NOTE | 2017-07-27 09:21 | HHI.OB ---
Subjective Remarks 31 year old female s/p C/S at 38 wks gestation, POD 2. AFVSS. Patient reports she is feeling well. Bleeding is decreasing and pain is well- controlled. She is formula feeding and bonding well with baby. Ambulating without difficulties. She is tolerating a diet without nausea or vomiting. She has had a bowel movement. She has passed gas. Denies chest pain, dysuria, shortness of breath, or calf pain. Objective Vitals/I&O Vital Signs Date Time Temp Pulse Resp B/P (MAP) Pulse Ox O2 Delivery O2 Flow Rate FiO2 07/27/17 07:50 98.1 76 18 133/80 (97) 07/26/17 19:30 98.3 88 17 138/93 (108) 07/26/17 18:38 98.3 82 16 96/61 (73) Result Diagram: 07/26/17 0539 Objective Remarks GENERAL: Well-nourished, well-developed patient. CARDIOVASCULAR: Regular rate and rhythm without murmurs, gallops, or rubs. RESPIRATORY: Breath sounds equal bilaterally. No accessory muscle use. ABDOMEN/GI: Abdomen soft, non-tender, mildly distended. No rebound or guarding. Incision: Covered in pressure bandage, will check prior to discharge Fundus: Firm, mildly tender at umbilicus. GENITOURINARY: Light to moderate bleeding. EXTREMITIES: No cyanosis or edema, non-tender, without signs of DVT. Medications and IVs Current Medications Medications (Trade) Dose Ordered Sig/Sol Route Start Time Stop Time Status Last Admin Lactated Ringer's 1,000 ml @ 150 mls/hr Q6H40M IV 07/25/17 15:21 07/25/17 23:00 (Bicitra Liq) 30 ml FINAL ASSEMBLY INSPECTOR PO 07/25/17 16:30 07/29/17 16:29 07/25/17 15:25 Cefazolin Sodium 1000 mg/Sodium Chloride 100 ml @ 200 mls/hr FINAL ASSEMBLY INSPECTOR IV 07/25/17 16:00 07/29/17 15:59 (NS Flush) 2 ml BID IV FLUSH 07/25/17 21:00 (NS Flush) 2 ml UNSCH PRN IV FLUSH 07/25/17 16:45 (Mylicon Chew) 80 mg QID PRN PO 07/25/17 16:45 11/4/17 05:23 (Tylenol) 650 mg Q6H PRN PO 07/25/17 16:45 (Percocet 5-325 Mg) 1 tab Q4H PRN PO 07/25/17 16:45 07/27/17 05:17 (Percocet 5-325 Mg) 2 tab Q4H PRN PO 07/25/17 16:45 (Asha-Colace) 2 tab Q12H PRN PO 07/25/17 16:45 07/27/17 05:23 (Ambien) 5 mg HS PRN PO 07/25/17 16:45 07/26/17 00:09 (Zofran Inj) 4 mg Q6H PRN IV PUSH 07/25/17 16:45 (Motrin) 600 mg Q6H PRN PO 07/26/17 17:15 07/27/17 05:17 Assessment/Plan Assessment and Plan 31 yo female s/p C/S, POD 2 - AFVSS - h/o depression, ADHD, PTSD, currently unmedicated, not established with psych. Mood and excessive movement seem much better today. - Psychiatry consulted, appreciate recommendations - No need for inpatient psychiatric admission. Recommend follow-up PRN if patient requests at her visit. - Continue routine care - Motrin and Percocet PRN pain - Encourage OOB - Pelvic rest x 6 wks. Will need 1 week incision check. - Contraception: s/p tubal ligation - Home today if incision looks good when checked Sadi Russo MD R2 Jul 27, 2017 09:21
--- NOTE | 2017-07-28 06:14 | PD.OP ---
Operative Report Date of Surgery: Jul 28, 2017 Preoperative Diagnosis: (1) Post-dates (2) Failed induction of labor (3) Positive GBS test Postoperative Diagnosis: (1) Failed induction of labor (2) Post-dates (3) Positive GBS test Procedure: 1' LTCS Anesthesia: epidural Surgeon: Kedar Eli Environmental Health Safety Engineer(s): n/a Resident Surgeon: n/a Operation and Findings: EBL: 500cc UOP: 100cc IVF: 2000cc female infant delivered from OP presentation at 05:29, APGARs 7/9, wt 3520g, nuchal x1 loose and reduced TECHNIQUE: The pt was taken to the OR where epidural anesthesia was found to be adequate. She was then prepped and draped in the normal sterile fashion. A time out was taken and agreed by all team members. A scalpel was used to make a Pfannensteil skin incision which was carried down to the underlying layer of fascia which was nicked in the midline. The fascia was extended bluntly. The muscles were in the midline and the peritoneum entered bluntly. It was stretched with adequate visualization of the bladder. A bladder blade was placed and a bladder flap created. A low uterine incision was then made with the scalpel and extended bluntly. A hand was placed into the lower uterine segment and the head delivered atraumatically followed by the body. Immediate cord clamping and handed off to awaiting team. Cord blood and pH was collected and sent to the lab. The placenta expelled with fundal massage. The uterus was exteriorized and cleared of all clot and debris. The hysterotomy was closed with 0-vicryl in a running locked fashion. A second layer of 0-monocryl was used to embricate and achieve excellent hemostasis. The cul-de-sac was suctioned and the uterus replaced into the abdomen. The gutters were inspected and cleared of all clot and debris. The hysterotomy was hemostatic. All instruments were removed from the abdomen and the peritoneum was closed with 2-0 vicryl. The rectus fascia was inspected and hemostatic. The fascia was closed with 0-vicryl in a running fashion from L to R. The subcutaneous tissue was irrigated and the Bovie used to achieve excellent hemostasis. The skin was closed with 4-0 monocryl in a running subcuticular fashion. The incision was dressed and a closing time out performed. The pt tolerated the procedure well and was taken to the PACU in stable condition. Sponge, laps, instruments, and needle counts were correct x3. Kedar Eli MD Jul 28, 2017 06:14
== END 2017-07-27 16:10 | disposition home or self-care (01) | DRG 766 ==
LOC: HOBED 14:33 → H2EB 14:45 → H1EA 18:09
PROVIDERS: ADMIT Obstetrics & Gynecology; ATTEND Obstetrics & Gynecology
PROC: 10D00Z1 Extraction of Products of Conception, Low, Open Approach (ICD-10-PCS; principal; 2017-07-25)
PROC: 0UB70ZZ Excision of Bilateral Fallopian Tubes, Open Approach (ICD-10-PCS; 2017-07-25)
DX: O34.211 Maternal care for low transverse scar from previous cesarean delivery (principal); O61.9 Failed induction of labor, unspecified; F17.210 Nicotine dependence, cigarettes, uncomplicated; Z37.1 Single stillbirth; O99.824 Streptococcus B carrier state complicating childbirth; O42.92 Full-term premature rupture of membranes, unspecified as to length of time between rupture and onset of labor; Z3A.38 38 weeks gestation of pregnancy; O99.334 Smoking (tobacco) complicating childbirth; O69.81X0 Labor and delivery complicated by cord around neck, without compression, not applicable or unspecified; O99.344 Other mental disorders complicating childbirth; F43.10 Post-traumatic stress disorder, unspecified; F90.9 Attention-deficit hyperactivity disorder, unspecified type; Z79.82 Long term (current) use of aspirin; Z30.2 Encounter for sterilization
CPT/HCPCS: 80307; 81001; 85025; 86850; 86900; 86901; 88302; 90715; G0481; J0131; J2590; J7120; Q0163